=== PATIENT | female | born 1940 | race Caucasian/White ===

== ENCOUNTER 2016-04-16 10:51 | Day surgery (SDC) | payer MEDICARE, OTHER ==
--- NOTE | ~2016-04-16 | EGD ---
EGD REPORT [facility] [address] [address] NAME: OFFICER,FIONA JOHNSON : [birth year] STATUS : REG [facility] PAT#: [id number] AGE: 76 ADM/REG DATE : 04/16/16 MR#: [id number] REPORT SERV DATE: 04/16/16 DICTATED BY: ADRIANNA ADHIKARI DATE: 04/16/16 REPORT STATUS : Draft TRANSCRIBED BY: [employer] DATE: 04/16/16 [facility] Patient Name: Officer , Fiona Johnson Date of : 1940 Attending MD: ADRIANNA ADHIKARI MD Procedure Date No Time: 04/16/2016 Procedure: Colonoscopy Indications: Abdominal pain in the left lower quadrant, Heme positive stool, FH of Colonic Polyps - 1st degree relative Referring MD: FLACO SUTHERLAND MD Medicines: as per anesthesia Complications: No immediate complications. Procedure: Pre-Anesthesia Assessment: - ASA Grade Assessment: III - A patient with severe systemic disease. After I obtained informed consent, the scope was passed under direct vision. Throughout the procedure, the patient's blood pressure, pulse, and oxygen saturations were monitored continuously. The [facility] [id number] was introduced through the anus and advanced to the cecum, identified by appendiceal orifice and ileocecal valve. The colonoscopy was somewhat difficult due to restricted mobility of the colon, significant looping and a tortuous colon. The patient tolerated the procedure. The quality of the bowel preparation was fair. Findings: The perianal and digital rectal examinations were normal. A few small and large-mouthed diverticula were found in the sigmoid colon. Internal hemorrhoids were found during endoscopy and were mild. Impression: - Diverticulosis in the sigmoid colon. - Internal hemorrhoids. Recommendation: - Continue present medications. Procedure Code(s): --- Professional --- 28599, Colonoscopy, flexible, proximal to splenic flexure; diagnostic, with or without collection of specimen(s) by brushing or washing, with or without colon decompression (separate procedure) Diagnosis Code(s): --- Professional --- K64.8, Other hemorrhoids EGD REPORT [address] [place]. [address] NAME: OFFICER,FIONA JOHNSON : [birth year] STATUS : REG [facility] PAT#: [id number] AGE: 76 ADM/REG DATE : 04/16/16 MR#: [id number] REPORT SERV DATE: 04/16/16 DICTATED BY: ADRIANNA ADHIKARI. DATE: 04/16/16 REPORT STATUS : Draft TRANSCRIBED BY: [employer] DATE: 04/16/16 K57.30, Diverticulosis of large intestine without perforation or abscess without bleeding R10.32, Left lower quadrant pain R19.5, Other fecal abnormalities Z83.71, Family history of colonic polyps CPT copyright 2013 [employer]. All rights reserved. The codes documented in this report are preliminary and upon nurse healthcare manager review may be revised to meet current compliance requirements. ADRIANNA ADHIKARI MD 04/16/2016 1:48 PM This report has been signed electronically. Number of Addenda: 0 Note Initiated On: 04/16/2016 1:01 PM Scope Withdrawal Time 0 hours 7 minutes 52 seconds [address] [place] [address]
--- NOTE | ~2016-04-16 | EGD ---
EGD REPORT [facility] [address] [address] NAME: OFFICER,FIONA JOHNSON : [birth year] STATUS : REG [facility] [place] PAT#: [id number] AGE: 76 ADM/REG DATE : 04/16/16 MR#: [id number] REPORT SERV DATE: 04/16/16 DICTATED BY: ADRIANNA ADHIKARI DATE: 04/16/16 REPORT STATUS : Draft TRANSCRIBED BY: [employer] DATE: 04/16/16 [facility] Patient Name: Officer , Fiona Johnson Date of : 1940 Attending MD: ADRIANNA ADHIKARI MD Procedure Date No Time: 04/16/2016 Procedure: Upper GI endoscopy Indications: Heartburn, Suspected esophageal reflux, Heme positive stool Referring MD: FLACO SUTHERLAND MD Medicines: as per anesthesia Complications: No immediate complications. Procedure: Pre-Anesthesia Assessment: - ASA Grade Assessment: III - A patient with severe systemic disease. After obtaining informed consent, the endoscope was passed under direct vision. Throughout the procedure, the patient's blood pressure, pulse, and oxygen saturations were monitored continuously. The [facility]IF H190 [id number] was introduced through the mouth, and advanced to the third part of duodenum. The upper GI endoscopy was accomplished without difficulty. The patient tolerated the procedure. Findings: The examined esophagus was normal. The entire examined stomach was normal. The cardia and gastric fundus were normal on retroflexion. The examined duodenum was normal. Impression: - Normal esophagus. - Normal stomach. - Normal examined duodenum. Recommendation: - Follow an antireflux regimen. - Continue present medications. Procedure Code(s): --- Professional --- 15856, Esophagogastroduodenoscopy, flexible, transoral; diagnostic, including collection of specimen(s) by brushing or washing, when performed (separate procedure) Diagnosis Code(s): --- Professional --- R12, Heartburn R19.5, Other fecal abnormalities EGD REPORT [facility] [address] [place]. [address] NAME: OFFICER,FIONA JOHNSON : [birth year] STATUS : [place] [facility] [place] PAT#: [id number] AGE: 76 ADM/REG DATE : 04/16/16 MR#: [id number] REPORT SERV DATE: 04/16/16 DICTATED BY: ADRIANNA ADHIKARI. DATE: 04/16/16 REPORT STATUS : Draft TRANSCRIBED BY: [employer] DATE: 04/16/16 CPT copyright 2013 [employer]. All rights reserved. The codes documented in this report are preliminary and upon proof technician helper review may be revised to meet current compliance requirements. ADRIANNA ADHIKARI MD 04/16/2016 1:25 PM This report has been signed electronically. Number of Addenda: 0 Note Initiated On: 04/16/2016 1:10 PM Scope Withdrawal Time 0 hours 0 minutes 0 seconds [address] [place] [address]
[~2016-04-16 10:51] MED LIST: ACET500CAP PO; ALKA-SELTZER PO; ASA5GR PO; CIP5 PO; COCONUT OIL TOP; COR20 PO; COR40 PO; CRANBERRY1 TAB OR; CYMBALTA60 PO; ESTRACE VAG0.1 MG/GM V; ESTRACE VAGIN42.5 GM V; FOLIC ACID800 MCG PO; FOLIC PO; GLUCPH PO; GLUMETZA500 MG PO; HALF81 PO; HARD NAILS PO; HIPREX1 GM PO; KRILLOIL PO; LEVOTHYROXIN100 MCG PO; LEVOTHYROXIN112 MCG PO; LEVOTHYROXINE PO; LEVOXYL112 MCG PO; LIPITOR20 PO; LITHOSTAT250 MG PO; LOFIB160 PO; MAGNESIUM WITH ZINC; MAGOX4 PO; MEGA RED FISH OIL PO; MOBIC15 MG PO; MULTI-VIT HP PO; NEXIUM40 PO; NORV25 PO; PREV30 PO; PRILOSEC OTC20 MG PO; PRIN10 PO; PRIN20 PO; PROBIOTIC PO; PROZAC PO; PROZAC40 MG PO; REMERON45 MG PO; REST15 PO; RESTORIL30 MG PO; SOOTHE EYE DROPS OP; TOPAMAX100 PO; TRICOR145 PO; VITAMIN D1000 UNI1 PO; VITAMIN D31000 UNIT PO; VITC500 PO; WELLSR150 PO; ZANTAC 150 PO; [UNRECOGNIZED DRUG - REMARK] PO
== END 2016-04-16 23:59 | disposition home or self-care (01) ==
LOC: DMU 10:51
PROVIDERS: Internal Medicine Gastroenterology
PROC: 0DJD8ZZ Inspection of Lower Intestinal Tract, Via Natural or Artificial Opening Endoscopic (ICD-10-PCS; principal; 2016-04-16 12:00)
PROC: 0DJ08ZZ Inspection of Upper Intestinal Tract, Via Natural or Artificial Opening Endoscopic (ICD-10-PCS; 2016-04-16 12:00)
DX: K64.8 Other hemorrhoids (principal); K57.30 Diverticulosis of large intestine without perforation or abscess without bleeding; Z83.71 Family history of colonic polyps; G43.909 Migraine, unspecified, not intractable, without status migrainosus; I10 Essential (primary) hypertension; E11.9 Type 2 diabetes mellitus without complications; E03.9 Hypothyroidism, unspecified; Z88.5 Allergy status to narcotic agent; Z88.8 Allergy status to other drugs, medicaments and biological substances; Z79.84 Long term (current) use of oral hypoglycemic drugs; Z79.890 Hormone replacement therapy; Z79.899 Other long term (current) drug therapy; Z86.73 Personal history of transient ischemic attack (TIA), and cerebral infarction without residual deficits; Z98.890 Other specified postprocedural states
CPT/HCPCS: 82962